=== PATIENT | male | born 1965 | race Two or more races ===

== ENCOUNTER 2017-03-04 13:55 | Emergency (ER) | payer BC ==
[~2017-03-04] VITALS: Ht 172.7 cm; Wt 72.6 kg
--- NOTE | 2017-03-04 14:38 | Emergency Room Report ---
History of Present Illness General Source: Patient, EMS Present Illness HPI 51-year-old male, history of alcohol who presents with seizure. EMS states that the friend was with patient, was at his house, patient had sudden episode of generalized seizure, lasted a few minutes, patient had a postictal phase which was and when EMS arrived. Patient slowly regained consciousness, bit his lip. No urinary or fecal incontinence. Patient states that he use to drink alcohol every day, he states "about one bottle of wine a day, and occasional hard liquor" but states he stopped drinking Christmastime. States that he has never had a seizure before Denies any drug use Currently denying any symptoms, no headache blurry vision neck pain nausea vomiting motor weakness Allergies: Coded Allergies: PENICILLINS (Verified Allergy, Unknown, 03/04/17) Patient History Past Medical History: see triage record Past Surgical History: none Pertinent Family History: none Reviewed Nursing Documentation: PMH: Agreed, PSxH: Agreed Review of Systems All Other Systems: negative except mentioned in HPI Physical Exam Sp02 EP Interpretation: reviewed, normal General Appearance: normal inspection, well appearing, no apparent distress, alert, GCS 15, non-toxic Head: normocephalic, atraumatic Eyes: bilateral eye normal inspection, bilateral eye PERRL, bilateral eye EOMI ENT: normal pharynx, normal voice, moist mucus membranes, other - lip abrasion Neck: normal inspection, full range of motion, supple Respiratory: normal inspection, lungs clear, normal breath sounds, no respiratory distress, no retraction, no wheezing, speaking full sentences, chest symmetrical Cardiovascular #1: normal inspection, regular rate, rhythm, normal capillary refill Cardiovascular #2: 2+ radial (R), 2+ radial (L) Gastrointestinal: normal inspection, non tender, soft, non-distended, no guarding Musculoskeletal: normal inspection, back normal, normal range of motion, non- tender Neurologic: normal inspection, alert, oriented x3, responsive, reliability technicians III-XII nml as tested, motor strength/tone normal, sensory intact, normal gait, speech normal Psychiatric: normal inspection, judgement/insight normal, memory normal Skin: normal inspection, normal color, no rash, warm/dry, well hydrated, normal turgor Medical Decision Making Diagnostic Impression: Primary Impression: Alcohol withdrawal Additional Impression: Seizure ER Course 51-year-old male, history of alcohol abuse with p/w seizure DDX: Alcohol withdrawal Electrolyte disturbance: hypoglycemia vs. hyponatremia vs. hypocalcemia vs. hypomagnesemia Cardiac: Arrythmia/acs Intracranial pathology: intracranial bleed, stroke Tox Plan: BGM EKG Labs, tox labs Ativan PRN / anti seizure meds ER course: No further seizures in ED Has been stable during ED stay. AOx4, no neurological signs or symptoms librium given no tremors stable for DC Disposition: Patient will be discharged to home. Patient instructed to be enter Patient is to follow up with their primary care doctor in 5 days and neurologist within 1 week. Strict return precautions discussed such as severe headache, fever, chills, neck pain, prolonged or increased frequency of seizures. Patient verbalized understanding and agrees with plan. EKG Diagnostic Results EP Interpretation: Yes Rate tachycardic Rhythm: NSR ST Segments: Benign early repolarization ASA given to patient: No Laboratory Tests Test 03/04/17 14:34 03/04/17 15:50 Arterial Blood pH 7.448 (7.350-7.450) Arterial Blood Partial Pressure CO2 30.8 mmHg (35.0-45.0) L Arterial Blood Partial Pressure O2 64.8 mmHg (75.0-100.0) L Arterial Blood HCO3 20.8 mmol/L (22.0-26.0) L Arterial Blood Oxygen Saturation 92.7 % (92.0-98.0) Arterial Blood Base Excess -2.1 Myles Test Positive White Blood Count 8.6 K/UL (4.8-10.8) Red Blood Count 4.35 M/UL (4.70-6.10) L Hemoglobin 13.1 G/DL (14.2-18.0) L Hematocrit 43.9 % (42.0-52.0) Mean Corpuscular Volume 101 FL (80-99) H Mean Corpuscular Hemoglobin 30.1 PG (27.0-31.0) Mean Corpuscular Hemoglobin Concent 29.8 G/DL (32.0-36.0) L Red Cell Distribution Width 13.3 % (11.6-14.8) Platelet Count 223 K/UL (150-450) Mean Platelet Volume 6.9 FL (6.5-10.1) Neutrophils (%) (Auto) 80.3 % (45.0-75.0) H Lymphocytes (%) (Auto) 10.6 % (20.0-45.0) L Monocytes (%) (Auto) 8.3 % (1.0-10.0) Eosinophils (%) (Auto) 0.4 % (0.0-3.0) Basophils (%) (Auto) 0.4 % (0.0-2.0) Sodium Level 134 MMOL/L (136-145) L Potassium Level 4.2 MMOL/L (3.5-5.1) Chloride Level 98 MMOL/L (98-107) Carbon Dioxide Level 28 MMOL/L (21-32) Anion Gap 8 mmol/L (5-15) Blood Urea Nitrogen 11 mg/dL (7-18) Creatinine 1.1 MG/DL (0.55-1.30) Estimate Glomerular Filtration Rate > 60 mL/min (>60) Glucose Level 103 MG/DL (74-106) Calcium Level 8.7 MG/DL (8.5-10.1) Total Bilirubin 1.0 MG/DL (0.2-1.0) Aspartate Amino Transferase (AST) 293 U/L (15-37) H Alanine Aminotransferase (ALT) 290 U/L (12-78) H Alkaline Phosphatase 91 U/L (46-116) Troponin I Pending Total Protein 8.4 G/DL (6.4-8.2) H Albumin 4.2 G/DL (3.4-5.0) Globulin 4.2 g/dL Albumin/Globulin Ratio 1.0 (1.0-2.7) Salicylates Level < 0.2 ug/mL (2.8-20) L Acetaminophen Level Pending Serum Alcohol < 3 mg/dL Disposition: HOME, SELF-CARE Condition: Improved Kota Wong M.D. Mar 04, 2017 14:38
[2017-03-04] MEDS ORDERED: chlordiazePOXIDE 25mg Cap ORAL ONE (15:15)
[2017-03-04] MEDS ORDERED: NALTREXONE HCL50 MG PO (16:31)
[2017-03-04] MEDS ORDERED: GABAPENTIN300 MG ORAL (16:31)
[2017-03-04] MEDS ORDERED: TRUVADA 200 MG1 EAC1 ORAL (16:31)
[2017-03-04] MEDS ORDERED: LAMICTAL200 MG ORAL (16:31)
[2017-03-04] MEDS ORDERED: LEXAPRO10 MG ORAL (16:31)
[2017-03-04] MEDS ORDERED: LITHIUM CARBON300 MG ORAL (16:31)
[2017-03-04] MEDS ORDERED: NORCO 5-325 TA1 EACH ORAL (16:34)
[2017-03-04] MEDS ORDERED: PROSCAR5 MG ORAL (16:34)
[2017-03-04 17:05] LABS: BASOPHILS % (AUTO) 0.4 % (0.0-2.0); EOSINOPHILS % (AUTO) 0.4 % (0.0-3.0); HEMATOCRIT 43.9 % (42.0-52.0); HEMOGLOBIN 13.1 G/DL (14.2-18.0); LYMPHOCYTES % (AUTO) 10.6 % (20.0-45.0); MEAN CORPUSCULAR VOLUME 101 FL (80-99); MONOCYTES % (AUTO) 8.3 % (1.0-10.0); NEUTROPHILS % (AUTO) 80.3 % (45.0-75.0); PLATELET COUNT 223 K/UL (150-450); RED BLOOD COUNT 4.35 M/UL (4.70-6.10); RED CELL DISTRIBUTION WIDTH 13.3 % (11.6-14.8); WHITE BLOOD COUNT 8.6 K/UL (4.8-10.8)
[2017-03-04 17:32] LABS: ANION GAP 8 mmol/L (5-15); BLOOD UREA NITROGEN 11 mg/dL (7-18); CALCIUM 8.7 MG/DL (8.5-10.1); CARBON DIOXIDE 28 MMOL/L (21-32); CHLORIDE 98 MMOL/L (98-107); CREATININE 1.1 MG/DL (0.55-1.30); POTASSIUM 4.2 MMOL/L (3.5-5.1); SODIUM 134 MMOL/L (136-145)
[2017-03-04 17:37] LABS: ALANINE AMINOTRANSFERASE 290 U/L (12-78); ALBUMIN 4.2 G/DL (3.4-5.0); ALKALINE PHOSPHATASE 91 U/L (46-116); ASPARTATE AMINO TRANSFERASE 293 U/L (15-37)
[2017-03-04 17:53] VITALS: BP 120/7
[2017-03-04 17:55] VITALS: BP 120/7
--- NOTE | 2017-03-14 16:19 | Cardiology Report ---
APPROVED REPORT EKG Measurement Heart [id number] Normal sinus rhythm Early repolarization Normal ECG
== END 2017-03-04 17:55 | disposition home or self-care (01) ==
LOC: EDBD 13:55 → EMR 17:50
DX: F10.239 Alcohol dependence with withdrawal, unspecified (principal); R56.9 Unspecified convulsions; Z88.0 Allergy status to penicillin
CPT/HCPCS: 36415; 36600; 80053; 82803; 84484; 85025; 93005; 99284; G0480; 80329